=== PATIENT | female | born 1960 | race Caucasian/White ===

== ENCOUNTER → 2016-09-06 16:33 | Outpatient (CLI) | payer MEDICARE ==
[2013-06-07 13:49] VITALS: BMI 33.9
[~2016-09-06 16:33] MED LIST: AMBIEN5 MG PO; CELEBREX 100 M100 MG PO; DESERYL100 MG PO; EFFEXOR75 MG PO; NEURONTIN 100100 MG PO; NICODERM C1 PATCH .3 TD; NORCO 5/325 TAB1 TA1 PO; RYBIX ODT50 MG PO; VITAMIN B-121000 MC3 GT; VITAMIN D2000 UNIT PO; ZOLOFT100 MG PO
== END | disposition home or self-care (01) ==
LOC: D.MAMMO 10:15
DX: Z12.31 Encounter for screening mammogram for malignant neoplasm of breast (principal)

== ENCOUNTER → 2017-01-08 15:46 | Outpatient (CLI) | payer MEDICARE ==
[2013-06-07 13:49] VITALS: BMI 33.9
== END | disposition home or self-care (01) ==
LOC: D.RAD 15:46
DX: J44.9 Chronic obstructive pulmonary disease, unspecified (principal)

== ENCOUNTER → 2019-07-26 13:09 | Outpatient (CLI) | payer MEDICARE ==
[2013-06-07 13:49] VITALS: BMI 33.9
== END | disposition home or self-care (01) ==
LOC: D.RAD 13:09
PROVIDERS: ATTEND Family Medicine
DX: J44.9 Chronic obstructive pulmonary disease, unspecified (principal)